=== PATIENT | male | born 1960 | race Caucasian/White ===

== ENCOUNTER → 2020-05-15 09:07 | Outpatient (BNVA) | payer OTHER, SELFPAY | PROVIDERS: PCP Internal Medicine; Referring Provider Internal Medicine; Visit Provider Hospitalist | DX: Z76.89 Persons encountering health services in other specified circumstances (principal) ==

== ENCOUNTER → 2020-07-09 10:14 | Outpatient (BNVA) | payer OTHER, SELFPAY | PROVIDERS: PCP Internal Medicine; Visit Provider Hospitalist ==

== ENCOUNTER → 2020-09-13 11:07 | Outpatient (BNVA) | payer OTHER, SELFPAY | PROVIDERS: PCP Internal Medicine; Visit Provider Hospitalist ==

== ENCOUNTER → 2020-10-28 13:12 | Outpatient (BNVA) | payer OTHER, SELFPAY | PROVIDERS: PCP Internal Medicine; Visit Provider Hospitalist ==

== ENCOUNTER 2022-04-25 23:38 | Emergency (ER) | payer OTHER, SELFPAY ==
--- NOTE | 2022-04-26 01:56 | PC.NURSE ---
Patient called to be traiged by ILIANA Rodgers tech-no answer.
--- NOTE | 2022-04-26 02:01 | PC.NURSE ---
Second attempt made to call patient for triage from the waiting room-no answer.
--- NOTE | 2022-04-26 02:10 | PC.NURSE ---
Third attempt made to call patient from the waiting room for the triage-no answer.
== END 2022-04-26 03:09 | disposition left against medical advice (07) ==
PROVIDERS: Emergency Provider Emergency Medicine
DX: R06.02 Shortness of breath (principal)

== ENCOUNTER → 2022-04-28 13:52 | Outpatient (BNVA) | payer OTHER, SELFPAY | PROVIDERS: Visit Provider Hospitalist | DX: J45.41 Moderate persistent asthma with (acute) exacerbation (principal); J18.0 Bronchopneumonia, unspecified organism; B34.9 Viral infection, unspecified | CPT/HCPCS: 94640 ==

== ENCOUNTER 2023-06-17 14:31 | Outpatient (AMB) | payer OTHER, SELFPAY ==
--- NOTE | 2023-06-17 14:36 | A.OFFVIS_ITS ---
Intake Vital Signs 06/17/23 14:44 Weight 227 lb BP 140/80 H Blood Pressure Location Lt brachial Position Sitting Pulse 90 Pulse Oximetry (%) 95 Intake Visit Reasons: Pulmonary nodule Allergies No Known Allergies Allergy (Verified 06/17/23 14:44) HPI HPI Comments History of Present Illness Details The patient is a 63-year-old gentleman previously healthy who apparently back in June started developing respiratory complaints. He also had chest discomfort as well as shortness of breath and coughing. Did feel like he at the same exercise stamina that he did prior. Used to be able to hike regularly without any difficulties and that have become more of an issue. Symptoms continue worsening. Or however, in October he started developing fevers as well as headaches along with worsening shortness of breath. Initially went to [facility] where he left prior to being seen. Symptoms persisted he went to see his primary care doctor who then admitted him at [facility]. He did undergo a CT scan of the chest during that admission ruling out pulmonary emboli. It did demonstrate he had a by 4 mm pulmonary n odule and also a slightly large hilar lymph node of 10 mm. Subsequently after that he had a repeat CT scan of the chest, but, I do not have the results and requests none from [facility]. If the nodule shows any significant worsening of the lymphadenopathy shows any significant worsening will make further arrangements to evaluate. In the meantime the patient has had significant headaches and daytime drowsiness. His [place] score is elevated 10/24. He does need to get a sleep study. He is also being followed by Neurology and will have any lumbar percussion. Due to the fevers and his constitutional symptoms another nonspecific symptoms he was also evaluated for Lyme disease and other infectious conditions. He is going to follow-up formally with Infectious Disease in the coming weeks. 07/09/2020 the patient is here for shu del cid follow-up visit. He continues to have significant daytime drowsiness and dyspnea on exertion. He can not not perform his ADLs. Usually after a day of work in the next day he is extemely exhausted. He falls asleep in multiple places during the day. His Cors[place] score is elevated further up to 14/24. He has headaches in the morning. The patient also is having significant hypersomnia. Initially wanted to do a home sleep study but it was denied by his insurance for unclear reason. At this point, based on his symptoms he would benefit from a multi latency sleep study in order to assess underlying sleep apnea and also to assess for hypersomnia or narcolepsy. The patient also had a a lumbar puncture done to assess his significant drowsiness it will follow up with Infectious Disease regarding the results. In the meantime the patient had a small 4 mm pulmonary nodule and some slight hilar lymphadenopathy that do need to follow-up. The patient follow up with us after his MSLT in the meantime he will try a 2 week trial of inhaled corticosteroid to see if he gets any improvement his respiratory status. 09/13/2020 the patient is here for pulmo nany follow-up visit. Still feels very poorly. He complains of significant daytime drowsiness his [place] course actually were 16/24. He is getting headaches in the morning and also throughout the day. He is also complaining of the dyspnea on exertion and fatigue. He did try the inhaler but it did not helping. Initially had some difficulties getting sleep study approved but finally had a home sleep study which we personally reviewed in the office. He has an AHI of 35 concerning for moderate to severe sleep apnea. For the most part was hypopneas. The patient did have a elevated heart rate up to 109 and a pulse ox of 86%. At this point the patient is extremely symptomatic therefore will start APAP therapy as soon as possible. We are ready call the [email or web address] to start the process in expedited if possible. In the meantime the patient was tested for her antibiotics for COVID- 19 in the were positive. 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 Depending his response to the APAP we can discuss using stimulants for persistent hypersomnia. 10/28/2020 patient is here for pulmonary follow-up visit. He is feeling a lot better. He did go to multiple specimens. It was noted that his cortisol level was decreased. He was started hydrocortisone which dramatically improved his symptoms. But, later he had a cosyntropin stim test which was normal per report in the patient's postop the hydrocortisone. He has been somewhat reluctant due to the fact that he felt so much better on it. In the meanwhile he also tried sleep aids and also stimulant such as Nuvigil which she could not tolerate. Patient has started CPAP therapy for severe sleep apnea. He has been struggling with the CPAP therapy. He has not felt any significant improvement while using it. Although he only has use the briefly. We did download the data. His AHI improved from more than 30 events an hour to 1. His average pressure is around 9 cm. Therefore, I did switch his APAP to CPAP of 9 cm with the hope that he is able to tolerated better. The patient decides not to pursue CPAP at some point he should have a repeat sleep study. In addition to that he has underlying pulmonary nodules. The last CT scan of the chest was done sometime in June 2020. Therefore he should be getting a repeat CT scan of the chest around June 2021. In the meantime he is asking about pulmonary rehabilitation. He lives in will bring him. Her he is already working physical therapy at the [facility]. I did recommend that he continue to exercise regularly there instead of traveling although it to [facility] based on the fact that his symptoms are improving. 04/20/2022 the patient is here for a pulmonary follow-up visit. Overall he does have good days and bad days. He still struggling with some degree of daytime drowsiness. Unfortunately, he could not tolerate the CPAP. Therefore he returned it. We talked about considering positional therapy. Indeed he did have severe sleep apnea with some degree of hypoxia and tachycardia. the other option we spoke about was a mandibular advancement device. He will talk to his dentist regarding 1. Since he tried and failed CPAP can potentially get that covered to insurance. He will consider it for now. Did have a CT scan of the chest done recently the [facility]. It appears that his pulmonary nodules are stable. He does have other non pulmonary issues that also appeared to be stable. This point will plan to repeat the CT scan in 18 months or sooner if he develops any new or worsening symptoms. 04/28/2022 the patient is here [facility]. The patient was recently seen he was fine. Ultimately he was exposed to sick contacts at a gathering. The patient started developing a cough productive in nature. Also complained of fevers and chills. The he was seen by his primary care doctor he had a flu swab that apparently was negative also had a COVID-19 swab that was negative. He was given a Z-Germain. Unfortunately his condition continued to worse. His cough was moderate severity productive in nature although difficult to expectorate. Chest felt congested and tight. On examination has significant expiratory wheezing throughout. Was given a DuoNeb treatment in the office with improvement. Although he still continue coughing. The patient is going to need prednisone also given another course of antibiotics. He also needs a rescue inhaler. I did recommend that he continue coughing that he would need to get a nebulizer and he can always call and I can get him a nebulizer RAIZA. Patient also has some crackles on examination so therefore he has but developed a po stviral bacterial lower respiratory infection. 06/17/2023 the patient is here for a pulmo maria eugenia follow-up visit. The patient overall feels well. He did get back from [place] several weeks ago and was e xposed to influenza A. He then started developing symptoms. He did take Tamiflu and he did improve. The patient overall did well. He is back to his baseline. Denies any significant shortness breath or cough. He still has a cough. It is intermittent. Denies any chest pains or palpitations. The patient also was supposed to have a CT scan of the chest. His last CT scan was back in January 2022 demonstrating a 7-8 mm pulmonary nodule. He was supposed to have a CT scan now but for some reason was denied. Will go ahead and request a CT scan in view of the intermediate size pulmonary nodule. The patient does have a history of cancer in the family. COUNTS INCLUDE 234 BEDS AT THE [facility] Medical History (Updated 06/18/23 @ 08:55 by Johan Smith MD) Pulmonary nodule GUILHERME (obstructive sleep apnea) Reactive airway disease Hypersomnia Sleep related headaches Has daytime drowsiness Pulmonary nodules Social History (Updated 04/20/22 @ 10:45 by Cha Jansen Johnny) Patient Tobacco Use Status: Never used Tobacco Review of Systems Const Reports daytime sleepiness, Denies headache(s) and Denies night sweats ENT Denies change in voice, Denies headache(s), Denies lip swelling, Denies mouth pain, Reports nasal congestion, Reports nasal discharge and Denies tongue swelling Card Denies chest pain and Denies dyspnea on exertion Resp Denies change in phlegm color, Denies chest congestion, Reports cough, Denies hemoptysis, Denies pain with cough, Denies dyspnea on exertion and Denies wheezing GI Denies abdominal pain Musc Denies no additional complaints Neuro Denies Neuro-related abnormal movements and Denies headache(s) Psych Denies no additional complaints Enoch/Lymph Denies easy bleeding and Denies lymphadenopathy Aller/Immun Denies lip swelling, Denies tongue swelling and Denies wheezing Physical Exam Vital Signs: Last Vital Signs Pulse 90 06/17/23 14:44 BP 140/80 H 06/17/23 14:44 Pulse Ox 95 06/17/23 14:44 Const General: tired appearing Eyes Pupils: Equal, round and reactive pupils present Neck Neck: Yes normal visual inspection, Yes full ROM and Yes no lymphadenopathy Chest Chest palpation & inspection: normal inspection of the chest Resp Effort & Inspection: normal respiratory effort Auscultation: clear to auscultation bilaterally, no rales, no rhonchi and no wheezes Cardio Rate: regular rate Rhythm: regular rhythm Heart sounds: S1 normal heart sound present and S2 normal heart sound present GI Palpation (GI): Soft to palpation and nontender Auscultation: normal bowel sounds Skin General skin exam: rashes and/or lesions noted Neuro Cranial nerves: Yes Equal, round and reactive pupils present Assessment & Plan Assessment & Plan (1) GUILHERME (obstructive sleep apnea): Code(s): G47.33 - Obstructive sleep apnea (adult) (pediatric) (2) Hypersomnia: Code(s): G47.10 - Hypersomnia, unspecified (3) Pulmonary nodules: Code(s): R91.8 - Other nonspecific abnormal finding of lung field Plan PAUL as needed Needs a CT chest to F/U 7-8 pulmonary nodule. positional sleep therapy F/U 1 yr Orders: Orders CT chest wo IV con 06/17/23 R91.8 - Other nonspecific abnormal finding of lung field Coding Level of Care Code Est Pt Level 4 (38462) Diagnoses GUILHERME (obstructive sleep apnea) G47.33 Hypersomnia G47.10 Pulmonary nodules R91.8 Time Spent (min) 17
[2023-06-17 14:44] VITALS: BP 140/80; PULSE 90; O2SAT 95
== END 2023-06-17 15:16 | disposition home or self-care (01) ==
PROVIDERS: PCP Internal Medicine; Visit Provider Hospitalist
DX: G47.33 Obstructive sleep apnea (adult) (pediatric) (principal); G47.10 Hypersomnia, unspecified; R91.8 Other nonspecific abnormal finding of lung field
CPT/HCPCS: 99214

== ENCOUNTER → 2023-06-17 14:31 | Outpatient (BNVA) | payer OTHER, SELFPAY | PROVIDERS: PCP Internal Medicine; Visit Provider Hospitalist ==